=== PATIENT | male | born 1995 | race Caucasian/White ===

== ENCOUNTER 2025-03-08 18:04 | Inpatient (IN) | payer BC, SELFPAY ==
[2025-03-08] VITALS (10 sets, daily range): BP systolic 98–152; BP diastolic 62–79; PULSE 94–130; RESP 15–25; TEMP 36.4–36.8; O2SAT 100; BMI 23.7
--- NOTE | ~2025-03-08 | CT_ITS ---
CLINICAL HISTORY: Severe anemia, blood per rectum, evaluate for sour --- Additional Notes or Special Instructions: Rule out malignancy CT angiography abdomen and pelvis with contrast. 3-D post processing. Comparison: None provided Findings: Aorta, mesenteric/renal arteries, and iliofemoral systems are within normal limits. No consolidation or effusion. The gallbladder and solid organs are within normal limits. No renal stones. No bowel obstruction, pneumoperitoneum, or pneumatosis. Pelvic contents unremarkable. Normal appendix. The bones are intact. IMPRESSION: No acute findings. This document has been electronically signed by: Hesham Patterson MD on 03/09/2025 06:54:29
--- NOTE | 2025-03-08 18:11 | ECG_ITS ---
Test Reason : syncopee Blood Pressure : */* mmHG Vent. Rate : 96 BPM Atrial Rate : 96 BPM P-R Int : 162 ms QRS Dur : 92 ms QT Int : 352 ms P-R-T Axes : 76 73 42 degrees QTcB Int : 444 ms Normal sinus rhythm Normal ECG No previous ECGs available Referred By: Jelly Escamilla Electronically Signed By: Johnathan Barry
--- NOTE | 2025-03-08 18:11 | ED.GENADULT ---
HPI - General Adult General Chief complaint: Syncope Stated complaint: shaky; dizziness, vomiting Time Seen by Provider: 03/08/25 19:05 Source: patient and other (Significant other: Rob) Mode of arrival: ambulatory Limitations: no limitations History of Present Illness ED Provider: Dr. Sam Hernandez HPI narrative: 29-year-old male with no significant past medical history who presents emergency department for evaluation of lightheadedness, dizziness, fatigue and syncope. Patient states he has had progressively worsening fatigue over the last 4-5 months. He states that he has also had dyspnea on exertion which is gotten progressively worse as well. He states he woke up this morning and was feeling fine. Prior to coming to the emergency department he states that he felt a pulsing sensation in his head and felt lightheaded. He states that he sat down and when he stood up he felt like he was going to pass out. He states that he put the tailgate of his truck down lie down and then passed out. He then came to the emergency department for evaluation. Patient states that over the last he has been straining to move his bowels. He states once or twice a week he noticed dark red blood in the toilet water after moving his bowels. Patient states he does have dental issues and does take ibuprofen 400 mg b.i.d. once or twice a week. Related Data Allergies Allergy/AdvReac Type Severity Reaction Status Date / Time No Known Allergies Allergy Verified 03/08/25 18:10 Review of Systems Review of Systems: Yes all other systems are reviewed and are negative [facility] Past Medical History [facility] Narrative: Social history: He denies tobacco, alcohol and drug use Social History Social History Advance Directives: No Advance Directives Information Provided: Yes Do you have a plan to hurt others: No Plan Physical Exam ED Vital Signs: Vital Signs - 24 hr 03/08/25 18:08 03/08/25 18:32 03/08/25 18:34 Temperature 97.6 F Pulse Rate 116 H 118 H 120 H Respiratory Rate 18 Blood Pressure 152/79 H 128/68 139/78 Pulse Oximetry 100 Oxygen Delivery Method Room Air 03/08/25 18:34 03/08/25 19:46 03/08/25 20:22 Temperature 98.3 F Pulse Rate 130 H 94 97 Respiratory Rate 25 H 19 Blood Pressure 131/78 116/65 Pulse Oximetry 100 Oxygen Delivery Method Room Air 03/08/25 20:40 03/08/25 20:40 03/08/25 20:55 Temperature 97.9 F 98.3 F 98.2 F Pulse Rate 97 96 98 Respiratory Rate 19 19 15 Blood Pressure 116/65 116/65 108/62 Pulse Oximetry Oxygen Delivery Method 03/08/25 20:58 Temperature 98.3 F Pulse Rate 96 Respiratory Rate 19 Blood Pressure 116/65 Pulse Oximetry Oxygen Delivery Method BMI result Body Mass Index 23.7 Vital signs revealed an elevated blood pressure of 152/79 and elevated heart rate of 116. Exam: General: Awake, alert in no distress Head: Normocephalic, atraumatic EENT: PERRL, sclera and conjunctiva are normal, mouth with no erythema or exudates Neck: Supple, no adenopathy Lung: breath sounds symmetric, no wheezing, no rales and no rhonchi Chest: symmetric movement, nontender Heart: Tachycardia with regular rhythm, normal S1, S2 no murmurs or rubs Abdomen: soft, non-tender, nondistended, normal bowel sounds Back: no vertebral tenderness, no CVAT Extremities: no deformities, moves all extremities symmetrically, no edema Recta: No external hemorrhoids, no stool in the rectum, no blood in the rectum Neuro: Awake, alert, oriented, normal speech, cranial nerves 2-12 intact, moves all extremities symmetrically Psych: Pleasant, cooperative Course Course Course Narrative: Jellyboubacar Escamilla OUTSOLE LEVELER 03/08 1812 this is a rapid medical exam. Defer additional HPI, ROS and PE to primary provider. 29-year-old male previously healthy here with syncopal episodes. Will obtain labs, EKG VSS Medical Decision Making Medical Decision Making MDM Narrative: 29-year-old male with no significant past medical history who presents emergency department for evaluation of lightheadedness, dizziness, fatigue and syncope. Patient states he has had progressively worsening fatigue over the last 4-5 months. He states that he has also had dyspnea on exertion which is gotten progressively worse as well. He states he woke up this morning and was feeling fine. Prior to coming to the emergency department he states that he felt a pulsing sensation in his head and felt lightheaded. He states that he sat down and when he stood up he felt like he was going to pass out. He states that he put the tailgate of his truck down lie down and then passed out. He then came to the emergency department for evaluation. Patient states that over the last he has been straining to move his bowels. He states once or twice a week he noticed dark red blood in the toilet water after moving his bowels. Patient states he does have dental issues and does take ibuprofen 400 mg b.i.d. once or twice a week. Vital signs revealed an elevated blood pressure and elevated heart rate. Patient had no abdominal tenderness. Rectal exam revealed no blood in the rectum, no stool in the rectum. Differential diagnosis: ?Includes but is not limited to myocardial infarction, myocardial ischemia, arrhythmia, vasovagal syncope, anemia, electrolyte abnormality Course: 20:28 My interpretation patient's laboratory evaluation is as follows: Microcytic anemia with an H&H of 4.5 and 18.6 with an MCV of 54.7. Elevated % reticulocytes of 2.4 % with normal absolute reticulocytes. BUN and creatinine were normal. Glucose elevated 128. Serum iron low 31, iron saturation low 7, total bilirubin normal. LDH normal. Troponin was below detectable limits. Twelve lead EKG was unremarkable. The patient's microcytic anemia is most likely secondary to iron deficient anemia due to lower GI blood loss with possible upper GI bleed since the patient has been taking ibuprofen. I did discuss this with the patient and the patient's significant other. Patient was ordered to get 3 units of packed red blood cells transfused. I also ordered Protonix 40 mg IV. 21:15 I did discuss the patient's presentation over tiger text with the covering resolution manager, Dr. Shea. She recommended that the patient get a CT scan with IV contrast (non-GI protocol) to evaluate for possible causes of GI bleed. 21:40 I did discuss the patient's presentation with the covering hospitalist, Dr. Zuniga and the patient will be admitted to the hospitalist service for further treatment. Dr. Zuniga requested that the CT abdomen pelvis be changed to CT abdominal angiogram GI bleed protocol. Differential Diagnosis Differential Diagnoses: The differential diagnosis associated with the presentation includes (See above) Admission/Observation Consideration of admission/observation: Escalation of care including admission/observation considered (Yes) Consult Healthcare Provider Management of the patient was discussed with: Hospitalist and Chore Worker (Forensic Investigator: Dr. Shea) Lab Data MDM Lab Attestation statement: I reviewed the patient's lab results. 03/08/25 18:40 03/08/25 18:40 Labs: Lab Results 03/08/25 03/08/25 Range/Units 18:40 19:20 WBC 11.1 H (4.8-10.8) X10*3/uL RBC 3.40 L (4.60-5.80) X10*6/uL Hgb 4.5 L* (14.0-18.0) g/dl Hct 18.6 L* (42.0-52.0) % MCV 54.7 L (80.0-98.0) fL MCH 13.2 L (27.0-33.0) pg MCHC 24.2 L (31.0-36.0) g/dl RDW 20.5 H (11.0-16.0) % Plt Count 459 H (160-400) X10*3/uL MPV 9.3 L (9.4-12.4) fL Immature Gran % (Auto) 0.5 H (0.0-0.4) % Neut % (Auto) 83.8 H (45-73) % Lymph % (Auto) 8.5 L (20-40) % [place] % (Auto) 6.4 (2-11) % Eos % (Auto) 0.4 (0-4) % Baso % (Auto) 0.4 (0-2) % Lymph # (Auto) 1.0 L (1.2-4.9) X10*3/uL [place] # (Auto) 0.7 (0.1-1.2) X10*3/uL Eos # (Auto) 0.0 (0.0-0.4) X10*3/uL Baso # (Auto) 0.1 (0.0-0.2) X10*3/uL Abs Immat Gran (auto) 0.06 H (0.00-0.03) X10*3/uL Absolute Neuts (auto) 9.3 H (2.0-8.3) x10*3/uL Absolute Nucleated RBC 0.050 H (0.0-0.012) X10*3/uL Nucleated RBC % (auto) 0.4 H (0.0-0.2) /100WBC Smear Tech's Comments VERIFIED Absolute Retic 0.081 (0.026-0.095) X10*6/uL Percent Retic 2.4 H (0.5-1.8) % Immature Retic Fraction 36.8 H (2.3-13.4) % Retic Hgb Equivalent 12.8 L (30.0-35.0) pg Sodium 138 (135-145) mmol/L Potassium 3.5 (3.3-5.1) mmol/L Chloride 102 (96-108) mmol/L Carbon Dioxide 26 (22-29) mmol/L Anion Gap 14 (12-20) BUN 10 (9-16) mg/dL Creatinine 0.80 (0.5-1.4) mg/dL Estim Creat Clear Calc 152.5 Estimated GFR > 60 Random Glucose 128 H (60-115) mg/dL Haptoglobin 145 (14-258) mg/dL Calcium 9.5 (8.4-10.2) mg/dL Iron 31 L (45-160) mcg/dL TIBC 426 (228-428) mcg/dL % Saturation 7 L (15-50) % Unsat Iron Binding 395 ug/dL Total Bilirubin 0.5 (0.0-1.0) mg/dL Direct Bilirubin 0.2 (0.0-0.5) mg/dL AST 21 (5-37) U/L ALT 13 (0-40) U/L Alkaline Phosphatase 37 L (39-117) U/L Lactate Dehydrogenase 160 (118-273) U/L Troponin I High Sens < 2.7 (<3.5-35.0) ng/L Total Protein 7.4 (6.5-8.0) g/dL Albumin 5.1 H (3.5-5.0) g/dL Blood Type A Positive Antibody Screen NEGATIVE Crossmatch See Detail Independent Interpretation I performed an independent interpretation of an: EKG Interpretation: My independent interpretation patient's 12 EKG done on 03/08/2025 at 18:24 hours is as follows: Normal sinus rhythm rate of 96, normal RI interval, QRS duration QTC interval, no ST segment elevation, no ST segment depression, no significant T-wave abnormalities. No old EKG for comparison. Independent Historian Clinical information obtained from an independent historian. History obtained from or confirmed by: Other (Significant other) Critical Care Time Critical Care Time Critical Care Time: Yes Total Critical Care Time: 35 Attestation: Critical Care: The patient was critically ill with a high probability of imminent or life threatening deterioration. I spent greater than 30 minutes of discontinuous time evaluating the patient,delivering critical care at the bedside, discussing and evaluating pertinent data with consultants. Critical care time does not include time spent performing separately billable procedures or teaching. Total time spent performing critical care was 35 minutes. Discharge Plan Discharge Patient Disposition: Admitted As Inpatient Print Language: Northern Irish
[2025-03-08 18:55] LABS: Imm Gran Abs Auto 0.06 X10*3/uL (0.00-0.03); Imm Gran Pct Auto 0.5 % (0.0-0.4); Lymphocytes Absolute Auto 1.0 X10*3/uL (1.2-4.9); Mean Corpuscular HGB Conc 24.2 g/dl (31.0-36.0); Mean Corpuscular Hemoglobin 13.2 pg (27.0-33.0); NRBC Abs Auto 0.050 X10*3/uL (0.0-0.012); NRBC Pct Auto 0.4 /100WBC (0.0-0.2); Platelet Count 459 X10*3/uL (160-400); Red Blood Count 3.40 X10*6/uL (4.60-5.80); White Blood Count 11.1 X10*3/uL (4.8-10.8)
[2025-03-08 18:59] LABS: Mean Corpuscular Volume 54.7 fL (80.0-98.0)
--- OUTSIDE RECORDS SUMMARY | 2025-03-08 18:59 | XMS_ITS | Clinical Summary ---
Author Organization [facility] Address [address] [place] [phone] Phone Care Team Providers Care Slitter Processed Film Name Role Phone Pcp, Unknown Primary Care Provider Mary Rivera MD Unavailable [phone] Allergies Active Allergy Reactions Criticality Noted Date Comments Tomato 02/22/2022 Medications No known medications Active Problems No known active problems Immunizations Immunization Administration Dates Next Due COVID-19 (Pre-04/02) Pfizer Vaccine, mRNA, PF 10/30/2020,10/09/2020 DTaP 12/19/1999, 6,05/15/1995,03/20,01/15/1995 Hepatitis B 08/14/1995,1994,1994 Hib,PRP-T 02/19/1996, 5,03/20/1995,01/15 IPV 12/19/1999 Influenza, Unspecified Formulation 02/23/2011,,04/09/2008 MMR 12/19/1999,02/19/1996 Meningococcal MCV4P 01/10/2008 Polio - OPV 05/15/1995,03/20/1995,01/15/1995 Td (adult),2 Lf Tetanus Toxo id, PF, Adsorbed 01/08/2012 Tdap 12/10/2020,12/08/2006 Varicella 01/10/2008,12/18/1995 Social History Tobacco Use Types Packs/Day Years Used Date Smoking Tobacco: Never Smokeless Tobacco: Never Alcohol Use Standard Drinks/Week Comments Never 0 (1 standard drink = 0.6 oz pur e alcohol) Education Answer Date Recorded Are you interested in more education? Not on alessandro e 10/06/2022 Are you concerned about learning? Not on file 10/06/2022 No 10/06/2022 No 10/06/2022 Digital Access Answer Date Recorded No 11/03/2022 No 11/03/2022 No 11/03/2022 Reliable internet access at home? Not on file 11/03/2022 Device with a working camera? Not on file Sex and Gender Information Value Date Recorded Sex Assigned at Male 10/10/2021 11:48 AM EDT Legal Sex Male 8:53 PM EDT Gender Identity Male 10/10/2021 11:48 AM EDT Sexual Orientation Not on file Last Filed Vital Signs Vital Sign Reading Time Taken Comments Blood Pressure 126/78 05/10/2023 8:28 AM EST Pulse 88 05/10/2023 8:28 AM EST Temperature 37.1 C (98.8 F) 05/10/2023 8:28 AM EST Respiratory Rate 18 05/10/2023 8:28 AM EST Oxygen Saturation 98% 05/10/2023 8:28 AM EST Inhaled Oxygen Concentration - - Weight 86.2 kg (190 lb) 10/17/2021 1:02 PM EDT Height 185.4 cm (6' 1 ) 10/17/2021 1:02 PM EDT Body Mass Index 25.07 10/17/2021 1:02 PM EDT Plan of Treatment Health Maintenance Due Date Last Done Comments DEPRESSION SCREENING 2006 HEPATITIS C SCREENING 2012 HIV ONE-TIME SCREENING (18-65 YEARS) 2012 INFLUENZA VACCINE (#1) 2025 9, 02/23/2011, 03/11/2010, Additional history exists COVID-19 VACCINE ( season) 2025 10/30/2020, 10/09/2020 Adult Td,Tdap Booster 12/10/2030 12/10/2020 , 01/08/2012, 12/08/2006 HIB VACCINES Completed 02/19/1996, 12/0 10/1994, 03/20/1995, Additional history exists MENINGOCOCCAL VACCINES (ACWY) Aged Out 01/10/2008 No longer eligible based on patient's age to complete this topic SMOKING STATUS SCREENING (Once After 26 Yrs) Completed 10/17/2021 HEPATITIS A VACCINES Aged Out No long er eligible based on patient's age to complete this topic MENINGOCOCCAL VACCINES (B) Aged Out N o longer eligible based on patient's age to complete this topic PNEUMOCOCCAL VACCINES (0-49 years) Aged Out No longer eligible based on patient's age to complete this topic Medical Devices Not on file Insurance [facility] Care Teams Slitter Processed Film Relationship Specialty Start Date End Date Pcp, Unknown PCP - General 02/22/22 Mary Meza MD [address] [place] [address], [address] [place] [address] [email or web address] Insurance Assigned Provider 09/15/23 Additional Source Comments The information contained in this document represents components of the legal health record. It is not the complete legal health record.[facility]
--- OUTSIDE RECORDS SUMMARY | 2025-03-08 18:59 | XMS_ITS | Clinical Summary ---
Author Organization [facility] Address [address] [place] [phone] Phone Care Team Providers Care [employer] Reading Teacher Name Role Phone Unavailable Primary Care Provider Unavailabl e Immunizations Immunization Administration Dates Next Due DTaP 12/19/1999, 6,05/15/1995,03/20,01/15/1995 Hep B, ped/adol 08/14/1995,1994,1994 Hib (PRP-T) 02/19/1996, 5,03/20/1995,01/15 IPV 12/19/1999 Influenza 02/23/2011,03/11/2010,04/09/2008 MMR 12/19/1999,02/19/1996 Meningococcal Conj (Menactra) MCV4P 01/10/2008 OPV 05/15/1995,03/20/1995,01/15/1995 Td (adult) (MBL), 2 Lf tetan us toxoid, PF, adsorbed 01/08/2012 Tdap 12/08/2006 Varicella 01/10/2008,12/18/1995 Social History Tobacco Use Types Packs/Day Years Used Date Smoking Tobacco: Never Assessed Sex and Gender Information Value Date Recorded Sex Assigned at Not on file Legal Sex Male 11:12 PM EST Gender Identity Not on file Sexual Orientation Not on file Last Filed Vital Signs Vital Sign Reading Time Taken Comments Blood Pressure 123/72 03/20/2012 12:00 AM EDT Pulse 77 03/20/2012 12:00 AM EDT Temperature 37 C (98.6 F) 02/07/2013 12:00 AM EDT Respiratory Rate - - Oxygen Saturation - - Inhaled Oxygen Concentration - - Weight 72.8 kg (160 lb 9.6 oz) 02/07/2013 12:00 AM EDT Height 181 cm (5' 11.25 ) 03/20/2012 12:00 AM ED T Body Mass Index - - Plan of Treatment Health Maintenance Due Date Last Done Comments HPV Vaccines (1 - 3-dose SCDM series) 2021 DTaP,Tdap,and Td Vaccines (8 - Td or Tdap) 01/07/2022 01/08/2012, 12/08/2006, 12/19/1999, Additional history exists Influenza Vaccines (#1) 2025 02/24/20 11, 03/11/2010, 04/09/2008 COVID-19 Vaccine ( season) 2025 Hepatitis B Vaccines Completed 08/14/1995, 1994, 1994 HIB Vaccines Completed 02/19/1996, 10/1994, 03/20/1995, Additional history exists IPV Vaccines Completed 12/19/1999, 10/1994, 03/20/1995, Additional history exists MMR Vaccines Completed 12/19/1999, 02/19/1996 Meningococcal Vaccine Aged Out 01/10/2008 No christi enoch eligible based on patient's age to complete this topic Varicella Vaccines Completed 01/10/2008, 12/18/1995 Hepatitis A Vaccines Aged Out No long er eligible based on patient's age to complete this topic Men B Vaccine Aged Out No longer elig ible based on patient's age to complete this topic Pneumococcal Vaccine Aged Out No long er eligible based on patient's age to complete this topic
--- OUTSIDE RECORDS SUMMARY | 2025-03-08 18:59 | XMS_ITS | Encounter Summary ---
Author Organization [facility] Address [address] [place] [phone] Phone Care Team Providers Care Hotel Assistant General Manager Name Role Phone Sivakumar Rivera MD Primary Care Provider Unavailabl e Encounter Details Date Type Department Care Team (Late st Contact Info) Description 01/17/2017 Conversion Encounter [facility] - [address], [address] [place] [address] Sivakumar Rivera MD Social History Tobacco Use Types Packs/Day Years Used Date Smoking Tobacco: Never Assessed Sex and Gender Information Value Date Recorded Sex Assigned at Not on file Legal Sex Male 11:12 PM EST Gender Identity Not on file Sexual Orientation Not on file documented as of this encounter Plan of Treatment Not on file documented as of this encounter Visit Diagnoses Not on filedocumented in this encounter Care Teams Hotel Assistant General Manager Relationship Specialty Start Date End Date Sivakumar Rivera MD PCP - General 08/01/16 12/01/20 documented as of this encounter
[2025-03-08 19:00] LABS: Alanine Aminotransferase 13 U/L (0-40); Albumin Level 5.1 g/dL (3.5-5.0); Alkaline Phosphatase 37 U/L (39-117); Anion Gap 14 (12-20); Aspartate Amino Transferase 21 U/L (5-37); Blood Urea Nitrogen 10 mg/dL (9-16); Calcium 9.5 mg/dL (8.4-10.2); Carbon Dioxide 26 mmol/L (22-29); Chloride 102 mmol/L (96-108); Creatinine Clr Calc Pharmacy 152.5; Estimated Glomerular Filt Rate > 60; Potassium 3.5 mmol/L (3.3-5.1); Sodium 138 mmol/L (135-145); Total Protein 7.4 g/dL (6.5-8.0)
[2025-03-08 19:05] LABS: Hematocrit 18.6 % (42.0-52.0); Hemoglobin 4.5 g/dl (14.0-18.0)
[2025-03-08 19:10] LABS: Troponin-I High Sensitivity < 2.7 ng/L (<3.5-35.0)
--- NOTE | 2025-03-08 19:17 | PC.NURSE ---
patient presents to the ED after increased feeling of weakness and light headedness, patient states that yesterday he felt increased light headedness yesterday while walking around. patient states that today he had a syncopal episode outside and decided to come to the hospital. patient states that he has been having blood in his stool aprox once a month, described as machine packager red. patient denies any black tarry stools or emesis. IV started in the left hand #20, additional IV started #20 in LFA. patient noted to be in sinus tach rate 110s, bp stable. patient is pale but well appearing. patient is alert and oriented x3.
[2025-03-08 19:36] LABS: Iron 31 mcg/dL (45-160); MANUAL DIFF FLAG SCAN; Percent Iron Saturation 7 % (15-50); Reticulocytes Absolute 0.081 X10*6/uL (0.026-0.095); SCAN SMEAR FLAG 1; Total Iron Binding Capacity 426 mcg/dL (228-428); Unsaturated Iron Binding 395 ug/dL
--- NOTE | 2025-03-08 19:54 | PC.NURSE ---
alert and oriented sitting upright in bed, states needs are met at this time, sign other at bedside. call dobson in reach
--- NOTE | 2025-03-08 20:58 | PC.NURSE ---
blood verified per policy. this nurse then failed to press save, realizing afterward but [facility] deleted verificvation and vitals already performed with driver/sales workers Jossy. reverified with misa. patient unchanged, no new symptoms. VSS. appears disorganized in vitals section of MAR
--- NOTE | 2025-03-08 21:24 | PC.NURSE ---
per MD Hernandez: wants 3 bags RBCs infused prior to CT abd
--- NOTE | 2025-03-08 21:39 | PM.IMHP ---
History of Present Illness Date of Service: 03/08/25 Chief Complaint: Syncope 29-year-old male with no significant past medical history presented to the hospital with a chief complaint of syncope. Patient mentioned that over the past few days he has been feeling tired and exhausted. Mentioned that today after he woke up he felt tired; when he got up he felt lightheaded dizzy and fainted. Reports he lost consciousness briefly. Denies any numbness tingling or focal weakness. Denies any dizziness at the time of my interview. Reports that he has been having dark-colored stools for many weeks at least once or twice a week. Reports dyspnea on exertion. Denies any chest pain. Mentions that has been having problems with his dentition and has been taking ibuprofen couple times a week. Patient denies any fever chills, sputum production. Denies any toxic habits. Review of all other systems is negative except mentioned above ER course: Per ER team, patient's exam was nonfocal; EKG nonischemic; no evidence of block; blood pressure is stable; on labs noted to have hemoglobin of 4.5; on rectal exam no stool noted to test for guaiac. Patient being ordered for 3 units of PRBC. [facility] Social History Advance Directives: No Advance Directives Information Provided: Yes Do you have a plan to hurt others: No Plan Meds Allergies Allergy/AdvReac Type Severity Reaction Status Date / Time tomato Allergy Difficulty Verified 03/09/25 03:03 Breathing Physical Exam Vital Signs and Narrative: Vital Signs: Last Vital Signs Temp 98.3 F 03/08/25 20:58 Pulse 96 03/08/25 20:58 Resp 19 03/08/25 20:58 BP 116/65 03/08/25 20:58 Pulse Ox 100 03/08/25 19:46 O2 Del Method Room Air 03/08/25 19:46 BMI result Body Mass Index 23.7 Gen: Appears be in no acute distress HEENT: NCAT, Moist mucosa. Pulmonary: Vesicular breath sounds, fair air entry CVS: Normal S1-S2 Abdomen: BS+, Soft, Nontender Extremities: Warm well perfused Neuro: Alert and awake. Results Labs 03/08/25 18:40 03/08/25 18:40 Labs: Laboratory Results - last 24 hr 03/08/25 03/08/25 18:40 19:20 MCV 54.7 L MCH 13.2 L MCHC 24.2 L RDW 20.5 H Plt Count 459 H MPV 9.3 L Immature Gran % (Auto) 0.5 H Neut % (Auto) 83.8 H Lymph % (Auto) 8.5 L [place] % (Auto) 6.4 Eos % (Auto) 0.4 Baso % (Auto) 0.4 Lymph # (Auto) 1.0 L [place] # (Auto) 0.7 Eos # (Auto) 0.0 Baso # (Auto) 0.1 Abs Immat Gran (auto) 0.06 H Absolute Neuts (auto) 9.3 H Absolute Nucleated RBC 0.050 H Nucleated RBC % (auto) 0.4 H Smear Tech's Comments VERIFIED Absolute Retic 0.081 Percent Retic 2.4 H Immature Retic Fraction 36.8 H Retic Hgb Equivalent 12.8 L Anion Gap 14 Estim Creat Clear Calc 152.5 Estimated GFR > 60 Random Glucose 128 H Haptoglobin 145 Calcium 9.5 Iron 31 L TIBC 426 % Saturation 7 L Unsat Iron Binding 395 Total Bilirubin 0.5 Direct Bilirubin 0.2 AST 21 ALT 13 Alkaline Phosphatase 37 L Lactate Dehydrogenase 160 Troponin I High Sens < 2.7 Total Protein 7.4 Albumin 5.1 H Blood Type A Positive Antibody Screen NEGATIVE Crossmatch See Detail Assessment and Plan (1) Syncope: Qualifiers: Syncope type: unspecified Qualified Code(s): R55 - Syncope and collapse Status: Acute Plan 29-year-old male with no significant past medical history presented to the hospital with a chief complaint of syncope. Admitted for following Syncope: Likely vasovagal. Exam nonfocal EKG nonischemic, no evidence of blocks Per pressure stable Orthostatic vitals Fall precautions Echocardiogram Holter the time of discharge Cardiology follow-up Symptomatic Anemia: Hemoglobin presentation was notable 4.5. No stool in the rectal vault to check for guaiac Being ordered for 3 units of PRBC Will obtain iron studies, folate and B12 Gastroenterology was notified CT abdomen pelvis pending GI consult follow up in a.m. NPO Gentle IV fluids IV ppi DVT prophylaxis: SCD boots Code status: Full code Quality Stroke Does the patient have a stroke diagnosis?: No VTE Prior VTE?: No VTE Risk Level:: Medical - moderate - high VTE Device Contraindication: N/A - Device Ordered VTE Drug Contraindication: Treatment Not Indicated
[2025-03-08 22:16] LABS: Iron 10 mcg/dL (45-160); Percent Iron Saturation 3 % (15-50); Total Iron Binding Capacity 386 mcg/dL (228-428); Unsaturated Iron Binding 376 ug/dL
[2025-03-08 23:03] LABS: Folate 13.3 ng/mL (> or = 4.0); Vitamin B12 310 pg/mL (200-900)
[2025-03-09] VITALS (18 sets, daily range): BP systolic 109–129; BP diastolic 51–80; PULSE 81–105; RESP 12–20; TEMP 36.2–36.8; O2SAT 97–99
[2025-03-09] MEDS: iohexoL 350 MG/ML 100 ML INFUS..BTL 80 ML IV (06:01)
--- NOTE | 2025-03-09 06:14 | P.CNGI_ITS ---
History of Present Illness Data of Consult Service Date: 03/09/25 Requesting physician: Pavel Zuniga Primary Care Provider: Unknown Physician HPI Reason for consult: GI bleed This is a 29-year-old gentleman with no significant past medical history who presented to the hospital for a syncopal event. Patient reports symptoms started almost 6 months ago with weakness, fatigue, shortness of breath that progressively gotten worse over the last few weeks. With this, he reports blood mixed in stool and some lower abdominal cramping. He also reports weight loss of 25 lb in the last 1 year. He also has 2 teeth that bother him occasionally, so he has been taking ibuprofen consistently for least a year. Patient did not previously have health insurance so did not seek any medical attention at that time. No family history of colon cancer that he is aware of. Review of Systems 2 Review of Systems: Yes all other systems are reviewed and are negative [facility] Social History Social History Advance Directives: No Advance Directives Information Provided: Yes Do you have a plan to hurt others: No Plan Meds Allergies Allergy/AdvReac Type Severity Reaction Status Date / Time tomato Allergy Difficulty Verified 03/09/25 03:03 Breathing Active Medications: Current Medications Acetaminophen (Acetaminophen 325 Mg Tablet) 650 mg PO Q6H PRN PRN Reason: Pain, Mild 1-3,fever,headache Calcium Carbonate (Calcium Carbonate 750 Mg Tab.Chew) 750 mg PO Q4H PRN PRN Reason: Heartburn Dextrose/Sodium Chloride (D5ns) 1,000 mls @ 100 mls/hr IVCONT .Q10H [facility] Last Admin: 03/09/25 00:22 Dose: 100 mls/hr Magnesium Hydroxide (Milk Of Magnesia 30 Ml Oral.Susp) 30 ml PO DAILY PRN PRN Reason: Constipation Melatonin (Melatonin 3 Mg Tablet) 6 mg PO BEDTIME PRN PRN Reason: Insomnia Pantoprazole Sodium (Pantoprazole Sodium 40 Mg/10 Ml Vial) 40 mg IVPUSH DAILY@0630 [facility] Last Admin: 03/09/25 06:14 Dose: 40 mg Sodium Chloride (0.9 % Sodium Chloride Flush 3 Ml Syringe) 3 ml IVFLUSH QSHIFT [facility] Last Admin: 03/09/25 00:00 Dose: Not Given Home Medications ?Medication ?Instructions ?Recorded ?Confirmed ?Last Taken ?Type acetaminophen 325 mg tablet 650 mg PO Q6H PRN Pain 03/09/25 Unknown History ibuprofen 200 mg tablet 400 mg PO Q8H PRN Pain 03/0903/09/25 Unknown History Physical Exam 2 Exam: Exam: No apparent distress Nonicteric Abdomen soft, nondistended Alert and oriented x3, normal gait Vital Signs: Vital Signs: Last Vital Signs Temp 98 F 03/09/25 05:57 Pulse 97 03/09/25 05:57 Resp 18 03/09/25 05:57 BP 119/71 03/09/25 05:57 Pulse Ox 100 03/08/25 21:53 O2 Del Method Room Air 03/08/25 21:53 BMI result Body Mass Index 23.7 Results Labs 03/09/25 06:14 03/09/25 06:14 Labs: Short CBC 03/08/25 Range/Units 18:40 WBC 11.1 H (4.8-10.8) X10*3/uL Hgb 4.5 L* (14.0-18.0) g/dl Hct 18.6 L* (42.0-52.0) % Plt Count 459 H (160-400) X10*3/uL BMP 03/08/25 18:40 Sodium 138 Potassium 3.5 Chloride 102 Carbon Dioxide 26 BUN 10 Creatinine 0.80 Calcium 9.5 Liver Function 03/08/25 Range/Units 18:40 Total Bilirubin 0.5 (0.0-1.0) mg/dL Direct Bilirubin 0.2 (0.0-0.5) mg/dL AST 21 (5-37) U/L ALT 13 (0-40) U/L Alkaline Phosphatase 37 L (39-117) U/L Albumin 5.1 H (3.5-5.0) g/dL Imaging CT scan - abdomen: Attestation: I personally reviewed and interpreted this imaging study as follows: My impression: Rectal wall thickening appreciated. Assessment and Plan (1) Iron deficiency anemia: Qualifiers: Iron deficiency anemia type: unspecified iron deficiency Qualified Code(s): D50.9 - Iron deficiency anemia, unspecified Status: Acute (2) Syncope: Qualifiers: Syncope type: unspecified Qualified Code(s): R55 - Syncope and collapse Status: Acute (3) Unintentional weight loss: Status: Acute Plan Pt with profound subacute anemia based on clinical presentation. Ddx include gastriris, PUD, duodenitis etc based on NSAIDs hx. BUN/Cr ratio is normal however so mid gut or lower GI bleed not excluded. Weight loss is concerning. plan: - Maintain x2 IV access at all times - Transfuse PRBC for Hb < 7. - Keep NPO for egd today - Cont protonix IV ppi BID - May need a colonoscopy if EGD normal - Further recommendations to follow in procedure note. Procedures Date of Service Date of Service: 03/09/25
[2025-03-09 06:20] LABS: SCAN SMEAR FLAG 1
[2025-03-09 06:22] LABS: Hematocrit 22.6 % (42.0-52.0); Imm Gran Abs Auto 0.05 X10*3/uL (0.00-0.03); Imm Gran Pct Auto 0.5 % (0.0-0.4); Lymphocytes Absolute Auto 1.1 X10*3/uL (1.2-4.9); MANUAL DIFF FLAG SCAN; Mean Corpuscular HGB Conc 28.8 g/dl (31.0-36.0); Mean Corpuscular Hemoglobin 18.2 pg (27.0-33.0); Mean Corpuscular Volume 63.3 fL (80.0-98.0); NRBC Abs Auto 0.020 X10*3/uL (0.0-0.012); NRBC Pct Auto 0.2 /100WBC (0.0-0.2); PLT ABN DIST 1; PLT CLUMP 1; Red Blood Count 3.57 X10*6/uL (4.60-5.80); White Blood Count 10.0 X10*3/uL (4.8-10.8)
[2025-03-09 06:23] LABS: Platelet Count 301 X10*3/uL (160-400)
[2025-03-09 06:25] LABS: Hemoglobin 6.5 g/dl (14.0-18.0)
[2025-03-09 06:34] LABS: Alanine Aminotransferase 11 U/L (0-40); Albumin Level 4.4 g/dL (3.5-5.0); Alkaline Phosphatase 33 U/L (39-117); Anion Gap 12 (12-20); Aspartate Amino Transferase 25 U/L (5-37); Blood Urea Nitrogen 8 mg/dL (9-16); Calcium 8.5 mg/dL (8.4-10.2); Carbon Dioxide 22 mmol/L (22-29); Chloride 104 mmol/L (96-108); Creatinine Clr Calc Pharmacy 184.9; Estimated Glomerular Filt Rate > 60; Potassium 4.0 mmol/L (3.3-5.1); Sodium 134 mmol/L (135-145); Total Protein 6.3 g/dL (6.5-8.0)
--- NOTE | 2025-03-09 07:16 | PC.NURSE ---
Pt alert and oriented. He reports he feels better following blood infusion. Reports no pain, denies dizziness. Reports that he is very anxious about the colonoscopy r/t previous bad experience. He requests something for his anxiety before the procedure to help him tolerate that.
--- NOTE | 2025-03-09 09:31 | PHA.MEDREC ---
Addendum entered by Desire Olivarez sri 03/09/25 09:43: REVIEWED BY PHARMACIST Original Note: Pharmacy Consult ? Medication Reconciliation Pharmacy has completed the medication reconciliation. Spoke with pt and he confirmed he is only taking Ibuprofen and Tylenol as needed for pain.
--- NOTE | 2025-03-09 09:36 | P.CONAN_ITS ---
Documented by User: Luli Tapia NP 03/09/25 09:37 HPI - Anesthesia Eval Consult details Narrative: 29 yr old male for EGD Suspected GI bleed: H/H was 4.5/18.6 upon arrival to ED 03/08/25; 4 units PRBCs ordered, 3 transfused with 1 transfusing PMFSH Active Problems Active Problems: All Active Problems Acute lower GI hemorrhage (Acute) Syncope (Acute) Iron deficiency anemia (Acute) Social History Social History Household Members: Other Household Members Other:: mom Housing: House Do you presently have visiting nurse or other home services: No Patient Tobacco Use Status: Never used Tobacco service: No Meds Allergies Allergy/AdvReac Type Severity Reaction Status Date / Time tomato Allergy Difficulty Verified 03/09/25 03:03 Breathing Active Medications: Current Medications Acetaminophen (Acetaminophen 325 Mg Tablet) 650 mg PO Q6H PRN PRN Reason: Pain, Mild 1-3,fever,headache Calcium Carbonate (Calcium Carbonate 750 Mg Tab.Chew) 750 mg PO Q4H PRN PRN Reason: Heartburn Dextrose/Sodium Chloride (D5ns) 1,000 mls @ 100 mls/hr IVCONT .Q10H [facility] Last Admin: 03/09/25 08:18 Dose: 100 mls/hr Magnesium Hydroxide (Milk Of Magnesia 30 Ml Oral.Susp) 30 ml PO DAILY PRN PRN Reason: Constipation Melatonin (Melatonin 3 Mg Tablet) 6 mg PO BEDTIME PRN PRN Reason: Insomnia Pantoprazole Sodium (Pantoprazole Sodium 40 Mg/10 Ml Vial) 40 mg IVPUSH DAILY@0630 [facility] Last Admin: 03/09/25 06:14 Dose: 40 mg Sodium Chloride (0.9 % Sodium Chloride Flush 3 Ml Syringe) 3 ml IVFLUSH QSHIFT [facility] Last Admin: 03/09/25 07:41 Dose: Not Given Home Medications ?Medication ?Instructions ?Recorded ?Confirmed ?Last Taken ?Type acetaminophen 325 mg tablet 650 mg PO Q6H PRN Pain 03/09/25 Unknown History ibuprofen 200 mg tablet 400 mg PO Q8H PRN Pain 03/0903/09/25 Unknown History Exam Height,Weight and Vital Signs: Height 6 ft 1 in Weight 81.6 kg Last Vital Signs Temp 98.3 F 03/09/25 08:24 Pulse 97 03/09/25 09:03 Resp 16 03/09/25 09:03 BP 120/80 03/09/25 09:03 Pulse Ox 99 03/09/25 09:03 O2 Del Method Room Air 03/09/25 09:03 Pertinent Lab Results Pertinent Lab Results: Laboratory Tests 03/08/25 03/08/25 03/08/25 18:40 19:20 21:58 WBC 11.1 H RBC 3.40 L Hgb 4.5 L* Hct 18.6 L* MCV 54.7 L MCH 13.2 L MCHC 24.2 L RDW 20.5 H Plt Count 459 H MPV 9.3 L Immature Gran % (Auto) 0.5 H Neut % (Auto) 83.8 H Lymph % (Auto) 8.5 L [place] % (Auto) 6.4 Eos % (Auto) 0.4 Baso % (Auto) 0.4 Lymph # (Auto) 1.0 L [place] # (Auto) 0.7 Eos # (Auto) 0.0 Baso # (Auto) 0.1 Abs Immat Gran (auto) 0.06 H Absolute Neuts (auto) 9.3 H Absolute Nucleated RBC 0.050 H Nucleated RBC % (auto) 0.4 H Smear Tech's Comments VERIFIED Smear Path Review SEE NOTE Absolute Retic 0.081 Percent Retic 2.4 H Immature Retic Fraction 36.8 H Retic Hgb Equivalent 12.8 L Sodium 138 Potassium 3.5 Chloride 102 Carbon Dioxide 26 Anion Gap 14 BUN 10 Creatinine 0.80 Estim Creat Clear Calc 152.5 Estimated GFR > 60 Random Glucose 128 H Haptoglobin 145 Calcium 9.5 Iron 31 L 10 L TIBC 426 386 % Saturation 7 L 3 L Unsat Iron Binding 395 376 Total Bilirubin 0.5 Direct Bilirubin 0.2 AST 21 ALT 13 Alkaline Phosphatase 37 L Lactate Dehydrogenase 160 Troponin I High Sens < 2.7 Total Protein 7.4 Albumin 5.1 H Vitamin B12 310 Folate 13.3 Blood Type A Positive Antibody Screen NEGATIVE Crossmatch See Detail 03/09/25 06:14 WBC 10.0 RBC 3.57 L Hgb 6.5 L* D Hct 22.6 L D MCV 63.3 L D MCH 18.2 L MCHC 28.8 L RDW 30.8 H Plt Count 301 D MPV 9.6 Immature Gran % (Auto) 0.5 H Neut % (Auto) 82.0 H Lymph % (Auto) 10.9 L [place] % (Auto) 5.1 Eos % (Auto) 0.9 Baso % (Auto) 0.6 Lymph # (Auto) 1.1 L [place] # (Auto) 0.5 Eos # (Auto) 0.1 Baso # (Auto) 0.1 Abs Immat Gran (auto) 0.05 H Absolute Neuts (auto) 8.2 Absolute Nucleated RBC 0.020 H Nucleated RBC % (auto) 0.2 Smear Tech's Comments VERIFIED Smear Path Review Absolute Retic Percent Retic Immature Retic Fraction Retic Hgb Equivalent Sodium 134 L Potassium 4.0 Chloride 104 Carbon Dioxide 22 Anion Gap 12 BUN 8 L Creatinine 0.66 Estim Creat Clear Calc 184.9 Estimated GFR > 60 Random Glucose 127 H Haptoglobin Calcium 8.5 D Iron TIBC % Saturation Unsat Iron Binding Total Bilirubin 0.8 Direct Bilirubin AST 25 ALT 11 Alkaline Phosphatase 33 L Lactate Dehydrogenase Troponin I High Sens Total Protein 6.3 L Albumin 4.4 Vitamin B12 Folate Blood Type Antibody Screen Crossmatch Documented by User: Yi Teran MD 03/10/25 11:46 PMFSH Family History Family history of problems with anesthesia: No Surgical History History of Problems with Anesthesia: No Social History Social History Household Members: Other Household Members Other:: mom Housing: House Do you presently have visiting nurse or other home services: No Patient Tobacco Use Status: Never used Tobacco service: No Meds Allergies Allergy/AdvReac Type Severity Reaction Status Date / Time tomato Allergy Difficulty Verified 03/09/25 03:03 Breathing Home Medications ?Medication ?Instructions ?Recorded ?Confirmed ?Last Taken ?Type acetaminophen 325 mg tablet 650 mg PO Q6H PRN Pain 03/09/25 Unknown History ibuprofen 200 mg tablet 400 mg PO Q8H PRN Pain 03/0903/09/25 Unknown History Exam Airway Heart: rrr Lungs: cta Assessment and Plan Assessment Anesthesia Assessment: Anesthesia Plan Discussed and Chart Reviewed Final Anesthetic Review Family History of Problems with Anesthesia: No History of Problems with Anesthesia: No NPO: Yes ASA Class: II Final Preanesthetic Review: No Changes in Pt Med Stat, Meds/Allgs Chart Reviewed, Consent Obtained/Reviewed and Anes Risks/Benef Reviewed Patient Risk: Low Procedure Risk: Low Anesthetic Plan Anesthetic Plan: MAC: Disposition: Standard PACU
--- NOTE | 2025-03-09 09:47 | PC.NURSE ---
Pt infusing 4th unit of RBC. Tolerating well, but c/o slight nausea. He attributes this to not eating. Vitals stable. IV in left wrist (transfusion site) tender at times, but doing OK at this time. No redness, swelling.
--- NOTE | 2025-03-09 10:15 | PC.NURSE ---
4th unit RBCs infused. Vitals stable.
[2025-03-09 10:35] LABS: MANUAL DIFF FLAG NO
--- NOTE | 2025-03-09 10:37 | HO.NURTONUR ---
Pt alert and oriented x4. Independent in the room up to bathroom. Admitted for anemia r/t possible GI bleed. Came to ER after syncopal episode at home. Reported dizziness and weakness at that time. HgB on admit was 4.5 Occult blood was negative but he reports bloody stool at home. Pt given 4 units RBC. Reports feeling better. Denies pain at this time, but has suspected ulcer in the past. Mild nausea now, possibly r/t hunger. at bedside.
[2025-03-09 10:42] LABS: Hematocrit 27.2 % (42.0-52.0); Hemoglobin 8.0 g/dl (14.0-18.0); Imm Gran Abs Auto 0.03 X10*3/uL (0.00-0.03); Imm Gran Pct Auto 0.3 % (0.0-0.4); Lymphocytes Absolute Auto 1.1 X10*3/uL (1.2-4.9); Mean Corpuscular HGB Conc 29.4 g/dl (31.0-36.0); Mean Corpuscular Hemoglobin 19.2 pg (27.0-33.0); Mean Corpuscular Volume 65.4 fL (80.0-98.0); NRBC Abs Auto 0.000 X10*3/uL (0.0-0.012); NRBC Pct Auto 0.0 /100WBC (0.0-0.2); Platelet Count 334 X10*3/uL (160-400); Red Blood Count 4.16 X10*6/uL (4.60-5.80); White Blood Count 9.5 X10*3/uL (4.8-10.8)
--- NOTE | 2025-03-09 10:51 | MHC.CM.PN ---
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 DCP: home, self care, pt. to arrange transport home at DC. CM to follow for DC needs.
[2025-03-09] MEDS: Flu Vacc TS2025-26(6mo up)/PF 0.5 ML SYRINGE IM (12:53)
--- NOTE | 2025-03-09 14:08 | PC.NURSE ---
Pt's twin berother has erecent diagnosis of ankylosing spondylitis. Pt preparing to transfer to [address] [place] [address]
--- NOTE | 2025-03-09 16:37 | P.PNIM_ITS ---
Subjective Subjective Date of Service: 03/09/25 Interval History: Patient is stable, without new complaints. Denies abdominal pain or discomfort. He denies any bleeding currently. GI planning on endoscopy today. Review of Systems Review of Systems: Yes all other systems are reviewed and are negative Physical Exam 2 Exam: Exam: General: A&O x3, oriented to time place person and situation, comfortable, no pain Cardiac: S1, S2 auscultated with no S3/4, no MRG. Well perfused. Respiratory: Normal breath sounds auscultated throughout all lung zones, without wheezing, rales. Normal rate. GI/ : No abdominal pain on palpation, no masses or distentions. MSK: Normal ambulation without pain at bony prominences or musculature Neurological: Normal neurological examination on overview, without obvious CN II-XII abnormalities. Vital Signs: Vital Signs: Last Vital Signs Temp 97.5 F 03/09/25 15:08 Pulse 85 03/09/25 15:08 Resp 18 03/09/25 15:08 BP 128/80 03/09/25 15:08 Pulse Ox 97 03/09/25 15:08 O2 Del Method Room Air 03/09/25 15:08 BMI result Body Mass Index 23.7 Objective Data Active Medications Acetaminophen (Acetaminophen 325 Mg Tablet) 650 mg PO Q6H PRN PRN Reason: Pain, Mild 1-3,fever,headache Calcium Carbonate (Calcium Carbonate 750 Mg Tab.Chew) 750 mg PO Q4H PRN PRN Reason: Heartburn Dextrose/Sodium Chloride (D5ns) 1,000 mls @ 100 mls/hr IVCONT .Q10H [facility] Last Admin: 03/09/25 08:18 Dose: 100 mls/hr Documented By: FAHEEM Magnesium Hydroxide (Milk Of Magnesia 30 Ml Oral.Susp) 30 ml PO DAILY PRN PRN Reason: Constipation Melatonin (Melatonin 3 Mg Tablet) 6 mg PO BEDTIME PRN PRN Reason: Insomnia Pantoprazole Sodium (Pantoprazole Sodium 40 Mg/10 Ml Vial) 40 mg IVPUSH DAILY@0630 [facility] Last Admin: 03/09/25 06:14 Dose: 40 mg Documented By: BISHOP Sodium Chloride (0.9 % Sodium Chloride Flush 3 Ml Syringe) 3 ml IVFLUSH QSHIFT [facility] Last Admin: 03/09/25 16:08 Dose: Not Given Documented By: HEMA Non-Admin Reason: IV Running Labs 03/09/25 10:32 03/09/25 06:14 Labs: Laboratory Results - last 24 hr 03/08/25 03/08/25 03/08/25 18:40 19:20 21:58 MCV 54.7 L MCH 13.2 L MCHC 24.2 L RDW 20.5 H Plt Count 459 H MPV 9.3 L Immature Gran % (Auto) 0.5 H Neut % (Auto) 83.8 H Lymph % (Auto) 8.5 L [place] % (Auto) 6.4 Eos % (Auto) 0.4 Baso % (Auto) 0.4 Lymph # (Auto) 1.0 L [place] # (Auto) 0.7 Eos # (Auto) 0.0 Baso # (Auto) 0.1 Abs Immat Gran (auto) 0.06 H Absolute Neuts (auto) 9.3 H Absolute Nucleated RBC 0.050 H Nucleated RBC % (auto) 0.4 H Smear Tech's Comments VERIFIED Smear Path Review SEE NOTE Absolute Retic 0.081 Percent Retic 2.4 H Immature Retic Fraction 36.8 H Retic Hgb Equivalent 12.8 L Anion Gap 14 Estim Creat Clear Calc 152.5 Estimated GFR > 60 Random Glucose 128 H Haptoglobin 145 Calcium 9.5 Iron 31 L 10 L TIBC 426 386 % Saturation 7 L 3 L Unsat Iron Binding 395 376 Total Bilirubin 0.5 Direct Bilirubin 0.2 AST 21 ALT 13 Alkaline Phosphatase 37 L Lactate Dehydrogenase 160 Troponin I High Sens < 2.7 Total Protein 7.4 Albumin 5.1 H Vitamin B12 310 Folate 13.3 Blood Type A Positive Antibody Screen NEGATIVE Crossmatch See Detail 03/09/25 03/09/25 06:14 10:32 MCV 63.3 L D 65.4 L MCH 18.2 L 19.2 L MCHC 28.8 L 29.4 L RDW 30.8 H TNP Plt Count 301 D 334 MPV 9.6 9.0 L Immature Gran % (Auto) 0.5 H 0.3 Neut % (Auto) 82.0 H 82.7 H Lymph % (Auto) 10.9 L 11.0 L [place] % (Auto) 5.1 4.5 Eos % (Auto) 0.9 1.0 Baso % (Auto) 0.6 0.5 Lymph # (Auto) 1.1 L 1.1 L [place] # (Auto) 0.5 0.4 Eos # (Auto) 0.1 0.1 Baso # (Auto) 0.1 0.1 Abs Immat Gran (auto) 0.05 H 0.03 Absolute Neuts (auto) 8.2 7.9 Absolute Nucleated RBC 0.020 H 0.000 Nucleated RBC % (auto) 0.2 0.0 Smear Tech's Comments VERIFIED Smear Path Review Absolute Retic Percent Retic Immature Retic Fraction Retic Hgb Equivalent Anion Gap 12 Estim Creat Clear Calc 184.9 Estimated GFR > 60 Random Glucose 127 H Haptoglobin Calcium 8.5 D Iron TIBC % Saturation Unsat Iron Binding Total Bilirubin 0.8 Direct Bilirubin AST 25 ALT 11 Alkaline Phosphatase 33 L Lactate Dehydrogenase Troponin I High Sens Total Protein 6.3 L Albumin 4.4 Vitamin B12 Folate Blood Type Antibody Screen Crossmatch Assessment and Plan (1) Unintentional weight loss: Status: Acute (2) Acute lower GI hemorrhage: Status: Acute (3) Iron deficiency anemia: Status: Acute (4) Syncope: Status: Acute Plan 29-year-old male with no significant past medical history presented to the hospital with a chief complaint of syncope, admitted with acute symptomatic on chronic anemia (iron deficiency) likely from chronic blood loss, s/p EGD 03/09 with GI. Acute Symptomatic Anemia Chronic blood loss anemia Iron-deficiency anemia Hemoglobin presentation was notable 4.5. No stool in the rectal vault to check for guaiac Patient received 4 units PRBC over the course of 24 hours. No rapid reduction in hemoglobin or active bleeding. No bleeding diathesis. No ecchymosis noted. Blood work consistent with iron-deficiency anemia Gastroenterology was notified GI to pursue EGD today NPO Gentle IV fluids IV pantoprazole 40 mg b.i.d. Syncope: Syncope likely 2/2 iron-deficiency anemia and symptomatic anemia. Given his hemoglobin of 4.5, this is likely a chronic progression of his anemia until he has become symptomatic. Outpatient echocardiography can be organized to evaluate for HCM (as compensates mechanism to chronic anemia). No need for further intervention at this time. DVT prophylaxis: SCD boots Code status: Full code Total time managing care of this patient today: 35 minutes. Quality Stroke Does the patient have a stroke diagnosis?: No VTE Prior VTE?: No VTE Risk Level:: Medical - moderate - high VTE Device Contraindication: N/A - Device Ordered VTE Drug Contraindication: Treatment Not Indicated
[2025-03-10] VITALS (8 sets, daily range): BP systolic 91–135; BP diastolic 40–81; PULSE 68–96; RESP 14–24; TEMP 35.9–36.7; O2SAT 94–100
[2025-03-10] MEDS: 0.9 % Sodium Chloride Flush 3 ML SYRINGE IVFLUSH (08:03)
--- NOTE | 2025-03-10 11:41 | PC.NURSE ---
Off unit at this time for procedure
--- NOTE | 2025-03-10 11:58 | MHC.SHP ---
Pre-Procedural Eval Section A - 24 Hr Update-Section A only Date of Service: 03/10/25 The patient is an INPATIENT: Yes The patient has been examined within 24 hours of the surgical procedure. The History & Physical has been completed within 30 days and I have reviewed it.: Yes Section B - Complete if H&P > 30 days Chief Complaint: Anemia Allergies: Allergies Allergy/AdvReac Type Severity Reaction Status Date / Time tomato Allergy Difficulty Verified 03/10/25 11:58 Breathing Plan Diagnosis/Plan: Unchanged I have reviewed the history and physical and performed a pertinent physical examination on my patient. No changes have occurred unless specified. Time Spent With Patient Time: Total time managing care of this patient today ____ minutes.
--- NOTE | 2025-03-10 13:23 | P.OP_ITS ---
Operative Note Operative Note Date of Service: 03/10/25 Narrative: Procedure: Esophagogastroduodenoscopy Endoscopist: Caprice Shea MD Indication: Anemia Anesthesia Provider: Darrell Montgomery CRNA Anesthesia Type: MAC ?? EGD Procedure:?? The procedure, indications, preparation and potential complications were reviewed with the patient, who indicated understanding and gave written informed consent to proceed. A physical exam was performed. The endoscope was introduced through the mouth, and advanced to the second part of duodenum. The mucosa was carefully examined on slow withdrawal of the endoscope. The patient tolerated the procedure well. There were no immediate complications.? ? EGD Findings:? * Esophagus:? Normal mucosa noted in the entire esophagus. The Z line was at 34 cm displaced by a large hiatal hernia with the diaphragmatic pinch at 40 cm. * Stomach:? Normal mucosa was noted in the stomach. The pyloric inlet was somewhat narrowed but traversed by scope. Retroflexion was performed in the cardia that demonstrated Hill grade III hiatal hernia. Random cold forceps gastric biopsies were taken to rule out H Pylori infection. * Duodenum:? Normal mucosa was noted in the whole of the examined duodenum. []Biopsies were taken from duodenal bulb and second portion of the duodenum to rule out celiac sprue. ? EGD Impressions:? * Normal esophagus * Hiatal hernia * Pyloric narrowing * Normal stomach mucosa (biopsy) * Normal duodenum (biopsy) ?? Recommendations:?? * Follow biopsy results. Our office will call or send a letter with results within 7-10 days. * Will schedule for a complete colonoscopy as outpatient booked for 03/19 for complete evaluation for NIECY.
--- NOTE | 2025-03-10 14:11 | P.DS_ITS ---
DS: Providers Provider Date of Service: 03/10/25 Date of admission: 03/08/25 21:37 Date of discharge: 03/10/25 Primary care physician: None Physician Consults: 03/08/25 21:37 Consult to Gastroenterology Routine Consulting Provider: [facility] Reason for consultation: gi bleed DS: Diagnosis Discharge Diagnosis (1) Unintentional weight loss: Status: Acute (2) Acute lower GI hemorrhage: Status: Acute (3) Iron deficiency anemia: Status: Acute (4) Syncope: Status: Acute DS: Summary Hospital Course Hospital Course: 29-year-old male with no significant past medical history presented to the hospital with a chief complaint of syncope, admitted with acute symptomatic on chronic anemia (iron deficiency) likely from chronic blood loss, s/p EGD 03/09 with GI. Acute Symptomatic Anemia Chronic blood loss anemia Iron-deficiency anemia Hemoglobin presentation was notable 4.5. No stool in the rectal vault to check for guaiac Patient received 4 units PRBC over the course of 24 hours. Improved hemoglobin to 8 on 03/09. No rapid reduction in hemoglobin or active bleeding. No bleeding diathesis. No ecchymosis noted. Blood work consistent with iron-deficiency anemia Gastroenterology was notified; EGD was pursued, without evidence of gastritis, bleeding, ulceration. GI planning colonoscopy in outpatient setting on March 19. Pantoprazole 40mg OD PO Repeat CBC in 1-2 days in outpatient setting Syncope: Syncope likely 2/2 iron-deficiency anemia and symptomatic anemia. Given his hemoglobin of 4.5, this is likely a chronic progression of his anemia until he has become symptomatic. Outpatient echocardiography can be organized to evaluate for HCM (as compensates mechanism to chronic anemia). No need for further intervention at this time. Status at Discharge Functional status at discharge: independent ambulation Overall status at discharge: patient is back to baseline Time Attestation Total time managing care of this patient today: 45 mintues. Discharge Coordination Time (in mins): 15 Quality: Safe Use of Opioids Does Pt have an Active Cancer Diagnosis on the Problem List?: No Quality: Stroke Does the patient have a stroke diagnosis?: No Physical Exam Exam: Exam: General: A&O x3, oriented to time place person and situation, comfortable, no pain Cardiac: S1, S2 auscultated with no S3/4, no MRG. Well perfused. Respiratory: Normal breath sounds auscultated throughout all lung zones, without wheezing, rales. Normal rate. GI/ : No abdominal pain on palpation, no masses or distentions. MSK: Normal ambulation without pain at bony prominences or musculature Neurological: Normal neurological examination on overview, without obvious CN II-XII abnormalities. Vital Signs: Vital Signs: Last Vital Signs Temp 97.1 F 03/10/25 13:16 Pulse 70 03/10/25 13:40 Resp 20 03/10/25 13:40 BP 95/40 L 03/10/25 13:40 Pulse Ox 94 03/10/25 13:40 O2 Del Method Room Air 03/10/25 13:40 BMI result Body Mass Index 23.7 DS: Data Data Completed and Pending Pending studies at discharge: Pending at discharge 03/10/25 13:10 Surgical [PTH] Routine Discharge Plan Discharge Anticipated Discharge Date/Time: 03/10/25 14:15 Patient Disposition: Home, Self-Care Discharge Diagnosis: Acute on chronic symptomatic anemia 2/2 likely blood loss anemia Referrals: Physician,None [Primary Care Provider, Medical] - 1 Week Discharge Medications: New pantoprazole 40 mg tablet,delayed release (DR/EC) 40 mg PO DAILY@0630 30 Days Qty: 30 0RF ferrous sulfate 300 mg (60 mg iron)/5 mL liquid 300 mg PO DAILY 30 Days Qty: 150 3RF Continued acetaminophen 325 mg Tablet 650 mg PO Q6H PRN (Reason: Pain) Discontinued ibuprofen 200 mg Tablet 400 mg PO Q8H PRN (Reason: Pain) Discharge Orders: Discharge Order (Routine); Ordered 03/10/25 Ordered By: Christen Payton Diet: Advance to usual diet Activity on Discharge: As tolerated Stand Alone Forms: Patient Portal Discharge page Print Language: Montenegrin Other Ambulatory Orders: Complete Blood Count Auto Diff (Routine) Timeframe: 3 Days Facility: [facility] - Location: Laboratory Ordered By: Christen Payton Care Plan Goals: As above Health Concerns: As above Plan of Treatment: Follow up with PCP within 1 week of discharge Follow up outpatient Gastroenterology within 2 weeks of discharge Follow up outpatient colonoscopy 19 of March planned with Gastroenterology Repeat blood work within 2-3 days of discharge Assessment: Patient is hemodynamically stable post transfusion 4 units PRBCs in the setting of suspected acute on chronic symptomatic anemia likely 2/2 chronic blood loss anemia from an undetermined source; most likely GI. Asymptomatic, normal blood pressure, normal heart rate. Hemodynamically stable for discharge
--- NOTE | 2025-03-10 14:30 | MHC.CM.PN ---
PT MEDICALLY CLEARED FOR DC HOME SELF CARE, PT TO ARRAGE TRANSPORT
== END 2025-03-10 15:31 | disposition home or self-care (01) | DRG 253 ==
LOC: HO.ED 21:00 → HO.EDOVER 22:03 → HO.IMC 03-09 12:36
PROVIDERS: Internal Medicine; Nurse Practitioner Family; Admitting Provider Hospitalist; Emergency Provider Emergency Medicine Emergency Medical Services; Visit Provider Hospitalist
PROC: 0DJ08ZZ Inspection of Upper Intestinal Tract, Via Natural or Artificial Opening Endoscopic (ICD-10-PCS; CPT 43235; principal; 2025-03-10 13:10)
DX: K92.2 Gastrointestinal hemorrhage, unspecified (principal); K31.1 Adult hypertrophic pyloric stenosis; D50.0 Iron deficiency anemia secondary to blood loss (chronic); K44.9 Diaphragmatic hernia without obstruction or gangrene; Z23 Encounter for immunization; Z79.899 Other long term (current) drug therapy
CPT/HCPCS: 36415; 74178; 80048; 80053; 80076; 82607; 82746; 83010; 83540; 83615; 84484; 85025; 85045; 86850; 86900; 86901; 86923; 88305; 88313; 88342; 90656; 93005; 99285; J2003; J2470; J2704; P9016; Q9967

== ENCOUNTER → 2025-03-08 18:11 | Outpatient (BNV) | payer BC, SELFPAY | PROVIDERS: Admitting Provider Hospitalist; Emergency Provider Emergency Medicine Emergency Medical Services; Visit Provider Internal Medicine Cardiovascular Disease | DX: R55 Syncope and collapse (principal) | CPT/HCPCS: 93010 ==

== ENCOUNTER 2025-03-08 21:37 | Outpatient (BNV) | payer BC, SELFPAY | END 2025-03-09 05:53 | PROVIDERS: Admitting Provider Hospitalist; Emergency Provider Emergency Medicine Emergency Medical Services; Visit Provider Specialist | DX: D64.9 Anemia, unspecified (principal) | CPT/HCPCS: 74178 ==

== ENCOUNTER → 2025-03-08 21:37 | Outpatient (BNV) | payer BC, SELFPAY | PROVIDERS: Admitting Provider Hospitalist; Emergency Provider Emergency Medicine Emergency Medical Services; Visit Provider Hospitalist | DX: R55 Syncope and collapse (principal); D50.9 Iron deficiency anemia, unspecified | CPT/HCPCS: 99223 ==

== ENCOUNTER → 2025-03-08 21:37 | Outpatient (BNV) | payer BC, SELFPAY | PROVIDERS: Admitting Provider Hospitalist; Emergency Provider Emergency Medicine Emergency Medical Services; Visit Provider Internal Medicine | DX: D64.9 Anemia, unspecified (principal); K31.1 Adult hypertrophic pyloric stenosis | CPT/HCPCS: 43239 ==

== ENCOUNTER 2025-03-13 13:03 | Outpatient (REF) | payer BC, SELFPAY ==
[2025-03-13 13:18] LABS: MANUAL DIFF FLAG NO
--- OUTSIDE RECORDS SUMMARY | 2025-03-13 13:26 | XMS_ITS | Clinical Summary ---
Author Organization [facility] Address [address] [place] [address] Phone Care Team Providers Care Television Receiver Analyzer Name Role Phone Pcp, Unknown Primary Care Provider Mary Rivera MD Unavailable [phone] Allergies Active Allergy Reactions Criticality Noted Date [...] topic Medical Devices Not on file Insurance [facility] Care Teams Television Receiver Analyzer Relationship Specialty Start Date End Date Pcp, Unknown PCP - General 02/22/22 Mary Meza MD [address] [place] [address], [address] [place] [address] [email or web address] Insurance Assigned Provider 09/15/23 Additional Source Comments The information contained in this document represents components of the legal health record. It is not the complete legal health record.[facility]
--- OUTSIDE RECORDS SUMMARY | 2025-03-13 13:26 | XMS_ITS | Clinical Summary ---
Author Organization [facility] Address [address] [place] [address] Phone Care Team Providers Care Welder Railcar Mechanic Name Role Phone Unavailable Primary Care Provider [...]
--- OUTSIDE RECORDS SUMMARY | 2025-03-13 13:27 | XMS_ITS | Encounter Summary ---
Author Organization [facility] Address [address] [place] [address] Phone Care Team Providers Care Kettle Cook Name Role Phone Sivakumar Rivera MD Primary Care Provider Unavailabl e Encounter Details Date Type Department Care Team (Late st Contact Info) Description 01/17/2017 Conversion Encounter [facility] - [address], [address] [place] [address] Sivakumar Rivera MD Social History Tobacco Use [...] on filedocumented in this encounter Care Teams Kettle Cook Relationship Specialty Start Date End Date Sivakumar Rivera MD PCP - General 08/01/16 12/01/20 documented as of this encounter
[2025-03-13 14:07] LABS: Hematocrit 31.8 % (42.0-52.0); Hemoglobin 8.9 g/dl (14.0-18.0); Imm Gran Abs Auto 0.03 X10*3/uL (0.00-0.03); Imm Gran Pct Auto 0.5 % (0.0-0.4); Lymphocytes Absolute Auto 1.0 X10*3/uL (1.2-4.9); Mean Corpuscular HGB Conc 28.0 g/dl (31.0-36.0); Mean Corpuscular Hemoglobin 18.9 pg (27.0-33.0); Mean Corpuscular Volume 67.7 fL (80.0-98.0); NRBC Abs Auto 0.000 X10*3/uL (0.0-0.012); NRBC Pct Auto 0.0 /100WBC (0.0-0.2); Platelet Count 349 X10*3/uL (160-400); Red Blood Count 4.70 X10*6/uL (4.60-5.80); White Blood Count 6.0 X10*3/uL (4.8-10.8)
== END 2025-03-13 13:04 | disposition home or self-care (01) ==
LOC: HO.LAB 13:03
PROVIDERS: Visit Provider Hospitalist
DX: D50.9 Iron deficiency anemia, unspecified (principal)
CPT/HCPCS: 36415; 85025

== ENCOUNTER 2025-03-19 10:38 | Day surgery (SDC) | payer BC, SELFPAY ==
--- OUTSIDE RECORDS SUMMARY | 2025-03-12 12:28 | XMS_ITS | Clinical Summary ---
Author Organization [facility] Address [address] [place] [address] Phone Care Team Providers Care Behavioral Health Specialist Name Role Phone Unavailable Primary Care Provider [...]
--- OUTSIDE RECORDS SUMMARY | 2025-03-12 12:28 | XMS_ITS | Clinical Summary ---
Author Organization [facility] Address [address] [place] [address] Phone Care Team Providers Care Education Officer Name Role Phone Pcp, Unknown Primary Care Provider Mary Rivera MD Unavailable [phone] Allergies Active Allergy Reactions Criticality Noted Date [...] you interested in more education? Not on alessandor e 10/06/2022 Are you concerned about learning? [...] topic Medical Devices Not on file Insurance [facility] Care Teams Education Officer Relationship Specialty Start Date End Date Pcp, Unknown PCP - General 02/22/22 Mary Meza MD [address] [place] [address], [address] [place] [address] [email or web address] Insurance Assigned Provider 09/15/23 Additional Source Comments The information contained in this document represents components of the legal health record. It is not the complete legal health record.[facility]
--- OUTSIDE RECORDS SUMMARY | 2025-03-12 12:28 | XMS_ITS | Encounter Summary ---
Author Organization [facility] Address [address] [place] [address] Phone Care Team Providers Care Administration Dean Name Role Phone Sivakumar Rivera MD Primary Care Provider Unavailabl e Encounter Details Date Type Department Care Team (Late st Contact Info) Description 01/17/2017 Conversion Encounter [facility] - [address], [address] [place] [address] Sivakumar Rivera MD Social History Tobacco Use [...] on filedocumented in this encounter Care Teams Administration Dean Relationship Specialty Start Date End Date Sivakumar Rivera MD PCP - General 08/01/16 12/01/20 documented as of this encounter
[2025-03-17 15:19] VITALS: BMI 25.1
--- NOTE | 2025-03-18 11:44 | HO.ANESPROP2 ---
Documented by User: Luli Tapia NP 03/18/25 11:45 HPI - Anesthesia Eval Consult details Narrative: 29 yr old male for colonoscopy s/p upper endo 03/11/25 with [facility] Active Problems Active Problems: All Active Problems Unintentional weight loss (Acute) Iron deficiency anemia (Acute) Past Medical History Medical History (Updated 03/18/25 @ 00:02 by Flory Chavarria) History of blood transfusion GI bleed Anemia Family History Family history of problems with anesthesia: No Surgical History Surgical History (Updated 03/19/25 @ 10:45 by Dinorah Clarke, SANCHO) History of surgery History of esophagogastroduodenoscopy (EGD) (03/10/25) History of Problems with Anesthesia: No Social History Social History (Updated 03/17/25 @ 15:21 by Nessa Lewis RN) Household Members: Other Household Members Other:: mom Housing: House Do you presently have visiting nurse or other home services: No Comment: syncopal episode came to ER recently Patient Tobacco Use Status: Never used Tobacco Use of substances other than those prescribed or required for medical reasons: Yes Substance Use Type: Marijuana Substance Use Frequency: Daily Have you been hit, kicked, punched, or otherwise hurt by someone within the past year? If so, by whom?: No Are you DNR?: No Advance Directives: No Advance Directives Information Provided: Yes Advance Directives on File: No Poor oral hygiene: No service: No Current occupational status: employed Meds Allergies Allergy/AdvReac Type Severity Reaction Status Date / Time tomato Allergy Difficulty Verified 03/10/25 11:58 Breathing Home Medications ?Medication ?Instructions ?Recorded ?Confirmed ?Last Taken ?Type acetaminophen 325 mg tablet 650 mg PO Q6H PRN Pain 03/09/25 03/17/25 Unknown History Exam Height,Weight and Vital Signs: Height 6 ft 1 in Weight 86.183 kg Assessment and Plan Final Anesthetic Review Family History of Problems with Anesthesia: No History of Problems with Anesthesia: No Documented by User: Kailee Hidalgo MD 03/19/25 10:55 PMFSH Past Medical History Medical History (Updated 03/18/25 @ 00:02 by Flory Chavarria) History of blood transfusion GI bleed Anemia Surgical History Surgical History (Updated 03/19/25 @ 10:45 by Dinorah Clarke, RN) History of surgery History of esophagogastroduodenoscopy (EGD) (03/10/25) Social History Social History (Updated 03/17/25 @ 15:21 by Nessa Lewis, SANCHO) Household Members: Other Household Members Other:: mom Housing: House Do you presently have visiting nurse or other home services: No Comment: syncopal episode came to ER recently Patient Tobacco Use Status: Never used Tobacco Use of substances other than those prescribed or required for medical reasons: Yes Substance Use Type: Marijuana Substance Use Frequency: Daily Have you been hit, kicked, punched, or otherwise hurt by someone within the past year? If so, by whom?: No Are you DNR?: No Advance Directives: No Advance Directives Information Provided: Yes Advance Directives on File: No Poor oral hygiene: No service: No Current occupational status: employed Meds Allergies Allergy/AdvReac Type Severity Reaction Status Date / Time tomato Allergy Difficulty Verified 03/10/25 11:58 Breathing Home Medications ?Medication ?Instructions ?Recorded ?Confirmed ?Last Taken ?Type acetaminophen 325 mg tablet 650 mg PO Q6H PRN Pain 03/09/25 03/17/25 Unknown History Exam Airway Mallampati Class: II (cracked teeth) TM Dist: >3cm Neck ROM: Full Heart: rrr Lungs: cta Assessment and Plan Assessment Anesthesia Assessment: Anesthesia Plan Discussed and Chart Reviewed Final Anesthetic Review NPO: Yes ASA Class: II Final Preanesthetic Review: No Changes in Pt Med Stat, Meds/Allgs Chart Reviewed and Consent Obtained/Reviewed Patient Risk: Low Procedure Risk: Low Anesthetic Plan Anesthetic Plan: MAC: Disposition: Standard PACU
[2025-03-19 10:49] VITALS: BMI 23.5
[2025-03-19 10:52] VITALS: BP 145/79; PULSE 93; RESP 16; TEMP 36.1; O2SAT 98
--- NOTE | 2025-03-19 10:55 | P.OPN-COLO_ITS ---
Colonoscopy Operative Note Operative Note Date of Service: 03/19/25 Narrative: Procedure: Colonoscopy Indication: Anemia Endoscopist: Capriec Shea MD Anesthesia Provider: Dr Kailee Abreu Anesthesia type: MAC Instrument: Olympus [id number]-[id number] Consent: Indication, risks vs benefits, and alternatives were discussed with the patient who gave written informed consent to proceed. EKG, pulse, pulse oximetry and blood pressure were monitored throughout the procedure. Please see anesthesia flowsheet. Procedure: The patient was brought to the procedure room and placed in the left lateral decubitus position. IV medications were administered by the anesthesia provider in attendance. A digital rectal exam was performed which was normal. A distal attachment cap was affixed to the tip of the colonoscope which was then inserted through the anus and advanced through the colon to the cecum at 80 cm,and terminal ileum. Appendiceal orifice and ileocecal valve were identified. Mucosa was carefully examined under high definition white light as the instrument was slowly withdrawn in a retrograde panoramic fashion. Retroflexion was performed in rectum. The procedure was not difficult. There were no immediate obvious complications. The quality of the prep was BBPS: 3+2+3 = adequate Withdrawal time 7 minutes. Limitations: No limitations. Findings: Mucosa: Normal to cecum and terminal ileum. Protruding lesions: * Large internal hemorrhoids with stigmata of recent bleeding. Impression: 1. Normal colon and terminal ileum mucosa 2. Large internal hemorrhoids Recommendations: - Rectal bleeding likely 2/2 hemorrhoidal bleeding. - Recommend anusol supp x 7-12 days. - Surgical referral will also be requested.
--- NOTE | 2025-03-19 10:55 | MHC.SHP ---
Pre-Procedural Eval Section A - 24 Hr Update-Section A only Date of Service: 03/19/25 The patient is an INPATIENT: No The patient has been examined within 24 hours of the surgical procedure. The History & Physical has been completed within 30 days and I have reviewed it.: Yes Section B - Complete if H&P > 30 days Chief Complaint: Anemia, unspecified Allergies: Allergies Allergy/AdvReac Type Severity Reaction Status Date / Time tomato Allergy Difficulty Verified 03/10/25 11:58 Breathing Plan Diagnosis/Plan: Unchanged I have reviewed the history and physical and performed a pertinent physical examination on my patient. No changes have occurred unless specified. Time Spent With Patient Time: Total time managing care of this patient today ____ minutes.
[2025-03-19] MEDS: Lactated Ringers 1,000 ML 100 ML IVCONT (11:02)
[2025-03-19 11:26] VITALS: BP 110/57; PULSE 98; RESP 25; TEMP 37.4; O2SAT 96
[2025-03-19 11:41] VITALS: BP 109/56; PULSE 90; RESP 22; O2SAT 98
[2025-03-19 11:56] VITALS: BP 118/68; PULSE 80; RESP 20; TEMP 37.1; O2SAT 97
== END 2025-03-19 12:32 | disposition home or self-care (01) ==
PROVIDERS: Visit Provider Internal Medicine
PROC: 0DJD8ZZ Inspection of Lower Intestinal Tract, Via Natural or Artificial Opening Endoscopic (ICD-10-PCS; CPT 45378; principal; 2025-03-19 12:30)
DX: D64.9 Anemia, unspecified (principal); K64.8 Other hemorrhoids; Z12.11 Encounter for screening for malignant neoplasm of colon; K62.5 Hemorrhage of anus and rectum
CPT/HCPCS: 45378; J2003; J2704

== ENCOUNTER → 2025-03-19 10:38 | Outpatient (BNV) | payer BC, SELFPAY | PROVIDERS: Visit Provider Internal Medicine | DX: D64.9 Anemia, unspecified (principal); K62.5 Hemorrhage of anus and rectum; K64.8 Other hemorrhoids | CPT/HCPCS: 45378 ==

== ENCOUNTER 2025-05-01 13:18 | Outpatient (REF) | payer BC, SELFPAY ==
[2025-05-01 13:25] LABS: MANUAL DIFF FLAG NO
--- OUTSIDE RECORDS SUMMARY | 2025-05-01 13:36 | XMS_ITS | Encounter Summary ---
Author Organization [facility] Address [address] [place] [address] Phone Care Team Providers Care Tenterer Name Role Phone Sivakumar Rivera MD Primary Care Provider Unavailabl e Encounter Details Date Type Department Care Team (Late st Contact Info) Description 01/17/2017 Conversion Encounter [facility] - [address], [address] [place] [address] Sivakumar Rivera MD Social History Tobacco Use [...] on filedocumented in this encounter Care Teams Tenterer Relationship Specialty Start Date End Date Sivakumar Rivera MD PCP - General 08/01/16 12/01/20 documented as of this encounter
--- OUTSIDE RECORDS SUMMARY | 2025-05-01 13:36 | XMS_ITS | Clinical Summary ---
Author Organization [facility] Address [address] [place] [address] Phone Care Team Providers Care Child Welfare Assistant Name Role Phone Pcp, Unknown Primary Care Provider Mary Rivera MD Unavailable [phone] Allergies Active Allergy Reactions Criticality Noted Date [...] topic Medical Devices Not on file Insurance [employer] Care Teams Child Welfare Assistant Relationship Specialty Start Date End Date Pcp, Unknown PCP - General 02/22/22 Mary Meza MD [address] [place] [address], [address] [place] [address] [email or web address] Insurance Assigned Provider 09/15/23 Additional Source Comments The information contained in this document represents components of the legal health record. It is not the complete legal health record.[facility]
--- OUTSIDE RECORDS SUMMARY | 2025-05-01 13:36 | XMS_ITS | Clinical Summary ---
Author Organization [facility] Address [address] [place] [address] Phone Care Team Providers Care Obstetric Anaesthetist Name Role Phone Unavailable Primary Care Provider [...]
[2025-05-01 14:41] LABS: Hematocrit 30.9 % (42.0-52.0); Hemoglobin 8.5 g/dl (14.0-18.0); Imm Gran Abs Auto 0.06 X10*3/uL (0.00-0.03); Imm Gran Pct Auto 0.5 % (0.0-0.4); Lymphocytes Absolute Auto 1.1 X10*3/uL (1.2-4.9); Mean Corpuscular HGB Conc 27.5 g/dl (31.0-36.0); Mean Corpuscular Hemoglobin 18.6 pg (27.0-33.0); Mean Corpuscular Volume 67.5 fL (80.0-98.0); NRBC Abs Auto 0.000 X10*3/uL (0.0-0.012); NRBC Pct Auto 0.0 /100WBC (0.0-0.2); Platelet Count 520 X10*3/uL (160-400); Red Blood Count 4.58 X10*6/uL (4.60-5.80); White Blood Count 13.1 X10*3/uL (4.8-10.8)
== END 2025-05-01 13:19 | disposition home or self-care (01) ==
LOC: HO.LAB 13:18
PROVIDERS: Visit Provider Internal Medicine
DX: D50.9 Iron deficiency anemia, unspecified (principal)
CPT/HCPCS: 36415; 85025

== ENCOUNTER 2025-05-18 09:39 | Outpatient (AMB) | payer BC, SELFPAY ==
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
[2025-05-18 09:49] VITALS: BP 131/75; PULSE 85; BMI 25.1
== END 2025-05-18 10:11 | disposition home or self-care (01) ==
LOC: HO.HGS 09:40
PROVIDERS: PCP Student in an Organized Health Care Education/Training Program; Referring Provider Internal Medicine; Visit Provider Surgery
DX: K64.9 Unspecified hemorrhoids (principal)
CPT/HCPCS: 99203

== ENCOUNTER 2025-05-22 07:26 | Day surgery (SDC) | payer BC, SELFPAY ==
--- NOTE | 2025-05-21 14:56 | HO.ANESPROP2 ---
Documented by User: Camille Hood NP 05/21/25 14:56 HPI - Anesthesia Eval Consult details Narrative: 29yo M for EUA,Hemorrhoidectomy PMFSH Active Problems Active Problems: All Active Problems Bleeding hemorrhoids (Acute) Unintentional weight loss (Acute) Iron deficiency anemia (Acute) Past Medical History Medical History Bleeding hemorrhoids History of blood transfusion GI bleed Anemia Family History Family history of problems with anesthesia: No Surgical History Surgical History Hx of colonoscopy History of surgery History of esophagogastroduodenoscopy (EGD) (03/10/25) History of Problems with Anesthesia: No Social History Social History Household Members: Other Household Members Other:: mom Housing: House Are you a primary neonatal critical care nurse to a significant other at home: No Do you presently have visiting nurse or other home services: No Comment: syncopal episode came to ER recently Patient Tobacco Use Status: Never used Tobacco Substance Use Type: Marijuana Substance Use Frequency: Daily Have you been hit, kicked, punched, or otherwise hurt by someone within the past year? If so, by whom?: No Are you DNR?: No Advance Directives: No Advance Directives Information Provided: Yes service: No Current occupational status: employed Meds Allergies Allergy/AdvReac Type Severity Reaction Status Date / Time tomato Allergy Difficulty Verified 05/22/25 07:40 Breathing Home Medications ?Medication ?Instructions ?Recorded ?Confirmed ?Last Taken ?Type acetaminophen 325 mg tablet 650 mg PO Q6H PRN Pain 03/09/25 05/22/25 Unknown History Exam Pertinent Lab Results Pertinent Lab Results: Laboratory Tests 03/09/25 05/01/25 06:14 13:25 WBC 13.1 H Hgb 8.5 L Hct 30.9 L Plt Count 520 H D Sodium 134 L Potassium 4.0 Chloride 104 Carbon Dioxide 22 BUN 8 L Creatinine 0.66 Assessment and Plan Assessment Anesthesia Assessment: Chart Reviewed Final Anesthetic Review Family History of Problems with Anesthesia: No History of Problems with Anesthesia: No Documented by User: Gem Howard MD 05/22/25 08:33 PMFSH Past Medical History Medical History Bleeding hemorrhoids History of blood transfusion GI bleed Anemia Surgical History Surgical History Hx of colonoscopy History of surgery History of esophagogastroduodenoscopy (EGD) (03/10/25) Social History Social History Household Members: Other Household Members Other:: mom Housing: House Are you a primary neonatal critical care nurse to a significant other at home: No Do you presently have visiting nurse or other home services: No Comment: syncopal episode came to ER recently Patient Tobacco Use Status: Never used Tobacco Substance Use Type: Marijuana Substance Use Frequency: Daily Have you been hit, kicked, punched, or otherwise hurt by someone within the past year? If so, by whom?: No Are you DNR?: No Advance Directives: No Advance Directives Information Provided: Yes service: No Current occupational status: employed Meds Allergies Allergy/AdvReac Type Severity Reaction Status Date / Time tomato Allergy Difficulty Verified 05/22/25 07:40 Breathing Home Medications ?Medication ?Instructions ?Recorded ?Confirmed ?Last Taken ?Type acetaminophen 325 mg tablet 650 mg PO Q6H PRN Pain 03/09/25 05/22/25 Unknown History Exam Airway Mallampati Class: II TM Dist: >3cm Neck ROM: Full Loose/Missing/Broken Teeth: No Heart: RRR Lungs: CTA Assessment and Plan Assessment Anesthesia Assessment: Anesthesia Plan Discussed Final Anesthetic Review NPO: Yes ASA Class: II Final Preanesthetic Review: Meds/Allgs Chart Reviewed, Consent Obtained/Reviewed and Anes Risks/Benef Reviewed Patient Risk: Low Procedure Risk: Low Anesthetic Plan Anesthetic Plan: GA Disposition: Standard PACU
--- OUTSIDE RECORDS SUMMARY | 2025-05-21 18:31 | XMS_ITS | Encounter Summary ---
Author Organization [facility] Address [address] [place] [phone] Phone Care Team Providers Care Forensic Analyst Name Role Phone Sivakumar Rivera MD Primary Care Provider Unavailabl e Encounter Details Date Type Department Care Team (Late st Contact Info) Description 01/17/2017 Conversion Encounter [facility] - [address], [address] [place] [address] Sivakumar Rivera MD Social History Tobacco Use [...] on filedocumented in this encounter Care Teams Forensic Analyst Relationship Specialty Start Date End Date Sivakumar Rivera MD PCP - General 08/01/16 12/01/20 documented as of this encounter
[2025-05-22] VITALS (7 sets, daily range): BP systolic 117–132; BP diastolic 54–71; PULSE 67–95; RESP 12–20; TEMP 36.8–37.7; O2SAT 99–100; BMI 24.1
[2025-05-22] MEDS: Lactated Ringers 1,000 ML 100 ML IVCONT (07:47)
--- NOTE | 2025-05-22 10:04 | MHC.SHP ---
Pre-Procedural Eval Section A - 24 Hr Update-Section A only Date of Service: 05/22/25 Changes since office visit: No Cold of Flu in the past 2 weeks, No New Medical Problems, No Changes in Medication and No Patient answered all questions The patient has been examined within 24 hours of the surgical procedure. The History & Physical has been completed within 30 days and I have reviewed it.: Yes Section B - Complete if H&P > 30 days Chief Complaint: Unspecified hemorrhoids Allergies: Allergies Allergy/AdvReac Type Severity Reaction Status Date / Time tomato Allergy Difficulty Verified 05/22/25 07:40 Breathing Plan I have reviewed the history and physical and performed a pertinent physical examination on my patient. No changes have occurred unless specified. Time Spent With Patient Time: Total time managing care of this patient today ____ minutes.
[2025-05-22] MEDS: cefoTEtan disodium 2 GM VIAL IVPUSH (10:35)
--- NOTE | 2025-05-22 11:16 | W.PM.OPN ---
Operative Note Operative Note Date of Service: 05/22/25 Narrative: Preop diagnosis: Bleeding hemorrhoids , internal external Postop diagnosis: The same Procedure: Exam under anesthesia, hemorrhoidectomy x2 columns Surgeon: Flakito Rao MD The patient is a 29-year-old male referred to me because of bleeding hemorrhoids with subsequent anemia. He understood the technique of the planned procedure. He was aware of the risks, benefits, and alternatives. He was brought to the operating room. He was placed in prone cesar-knife position under general anesthesia via endotracheal tube. The buttocks were retracted with wide tape laterally. The perianal area was prepped and draped in the usual sterile fashion. A surgical time-out was done. The patient received Cefotan 2 g IV preoperatively Examination of the anal orifice revealed large hemorrhoidal columns on both the left and right side. I inserted the Zheng Harper retractor. I examined the anal canal circumferentially. Again this large mixed internal and external hemorrhoidal columns were noted. I infiltrated the perianal area with lidocaine 1%. I applied a Orr grasper at the hemorrhoidal column on the left to retract this out into the field. I made a mouzko-wd-ekkde stitch at the pedicle past the dentate line with a chromic 3-0. I made an incision around this hemorrhoidal column to the perianal skin with a blade 15. I excised this hemorrhoidal column along this incision above the plane of the sphincters with some of scissors. I closed the incision with a running chromic 3-0 stitch. Additional rzrgfh-ne-wyzgd chromic 3-0 sutures were placed for hemostasis. I repeated the procedure on the large hemorrhoidal column on the right. Again, a Orr grasper was used to retract this out in the field. I made a eudupc-wa-svvlq stitch at the pedicle. I made an incision around this hemorrhoidal column to the perianal skin with a blade 15. I excised this above the plane of the sphincters with scissors. I closed the incision with a running chromic 3-0 stitch. Multiple jgdeiv-xs-secaw hemostatic sutures were placed for oozing areas Once hemostasis was confirmed, I infiltrated the perianal area generously with Marcaine 0.5% for postop analgesia. The procedure was then completed The patient tolerated the procedure well. There were no immediate complications. Initial and final counts of sponges and instruments were correct. Estimated blood loss about 75 cc. The patient was extubated without difficulty and transferred to the recovery room with stable vital signs.
[2025-05-22] MEDS: oxyCODONE HCl Immed Release 5 MG TABLET PO (11:27)
== END 2025-05-22 12:30 | disposition home or self-care (01) ==
PROVIDERS: Visit Provider Surgery
PROC: (CPT 46260; principal; 2025-05-22 09:30)
DX: K64.8 Other hemorrhoids (principal); K64.4 Residual hemorrhoidal skin tags; K62.5 Hemorrhage of anus and rectum; D64.9 Anemia, unspecified; Z92.89 Personal history of other medical treatment; F43.10 Post-traumatic stress disorder, unspecified; F41.9 Anxiety disorder, unspecified; F12.90 Cannabis use, unspecified, uncomplicated; Z91.018 Allergy to other foods; Z79.899 Other long term (current) drug therapy
CPT/HCPCS: 46260; 88304; J0131; J0525; J1885; J2003; J2250; J2704; J2795; J3010

== ENCOUNTER → 2025-05-22 07:26 | Outpatient (BNV) | payer BC, SELFPAY | PROVIDERS: Visit Provider Surgery | DX: K64.8 Other hemorrhoids (principal) | CPT/HCPCS: 46260 ==

== ENCOUNTER 2025-06-03 09:15 | Outpatient (AMB) | payer BC, SELFPAY ==
--- NOTE | 2025-06-03 09:19 | A.OFFVIS_ITS ---
Vital Signs 06/03/25 09:26 Height 6 ft 1 in Weight 189 lb 4 oz BMI 25.0 BP 133/63 Blood Pressure Location Lt brachial Position Sitting Pulse 91 Intake Visit Reasons: s/p hemorrhoidectomy Intake Note: Patient is seen in office for post op assessment post hemorrhoidectomy. 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 He tolerated procedure well. He does admit to pain but he says that this has been improving steadily. He occasionally sees small amounts of blood per rectum. He is able to sit down comfortably now. [facility] Medical History Bleeding hemorrhoids History of blood transfusion GI bleed Anemia Surgical History Hx of colonoscopy History of surgery History of esophagogastroduodenoscopy (EGD) (03/10/25) Social History Household Members: Other Household Members Other:: mom Housing: House Are you a primary special needs caregiver to a significant other at home: No Do you presently have visiting nurse or other home services: No Comment: syncopal episode came to ER recently Patient Tobacco Use Status: Never used Tobacco Substance Use Type: Marijuana service: No Current occupational status: employed Review of Systems Const Denies chills and Denies fever(s) Physical Exam Const Other: Sitting down on a chair General: comfortable and no acute distress Resp Effort & Inspection: normal respiratory effort Cardio Rate: regular rate GI Other: Rectal exam shows hemorrhoidectomy sites to be healing well, no signs of infection, some swelling of residual hemorrhoids noted Palpation (GI): Soft to palpation Assessment & Plan Assessment & Plan (1) Bleeding hemorrhoids: Code(s): K64.9 - Unspecified hemorrhoids Category: Medical Plan: Status post hemorrhoidectomy. He is steadily improving with regards to his pain level. Examination does not suggest any wound infection I advised him to avoid running and constipation. He is to continue warm soaks or hot Sitz baths. I will see him again in the office in about 3-4 weeks for another wound check. His path report shows hemorrhoidal tissue. Coding Level of Care Code Global (92572) Diagnoses Bleeding hemorrhoids K64.9
--- OUTSIDE RECORDS SUMMARY | 2025-06-03 09:21 | XMS_ITS | Encounter Summary ---
Author Organization [facility] Address [address] [place] [phone] Phone Care Team Providers Care Independent Consultant Name Role Phone Sivakumar Rivera MD Primary Care Provider Unavailabl e Encounter Details Date Type Department Care Team (Late st Contact Info) Description 01/17/2017 Conversion Encounter [facility] - [address], [address] [place] [address] Sivakumar Rivera MD Social History Tobacco Use [...] on filedocumented in this encounter Care Teams Independent Consultant Relationship Specialty Start Date End Date Sivakumar Rivera MD PCP - General 08/01/16 12/01/20 documented as of this encounter
--- OUTSIDE RECORDS SUMMARY | 2025-06-03 09:21 | XMS_ITS | Clinical Summary ---
Author Organization [facility] Address [address] [place] [phone] Phone Care Team Providers Care Border Guard Name Role Phone Pcp, Unknown Primary Care Provider Mary Rivera MD Unavailable [phone] Allergies Active Allergy Reactions Criticality Noted Date [...] topic Medical Devices Not on file Insurance [employer] Care Teams Border Guard Relationship Specialty Start Date End Date Pcp, Unknown PCP - General 02/22/22 Mary Meza MD [address] [place] [address], [address] [place] [address] [email or web address] Insurance Assigned Provider 09/15/23 Additional Source Comments The information contained in this document represents components of the legal health record. It is not the complete legal health record.[facility]
--- OUTSIDE RECORDS SUMMARY | 2025-06-03 09:21 | XMS_ITS | Clinical Summary ---
Author Organization [facility] Address [address] [place] [id number] Phone Care Team Providers Care Radiator Mechanic Name Role Phone Unavailable Primary Care [...]
[2025-06-03 09:26] VITALS: BP 133/63; PULSE 91; BMI 25.0
== END 2025-06-03 09:30 | disposition home or self-care (01) ==
LOC: HO.HGS 09:16
PROVIDERS: Visit Provider Surgery
DX: K64.9 Unspecified hemorrhoids (principal)
CPT/HCPCS: 99024